=== PATIENT | female | born 1935 | race Caucasian/White ===

== ENCOUNTER → 2019-01-16 | Outpatient (CLI) | payer MEDICARE, BC ==
--- NOTE | 2019-01-17 16:16 | MY ---
[id number] RYAN/RYAN Screening Bilateral PATIENT HISTORY: Menarche at age 11. First Full-Term at age 22. Postmenopausal. REASON FOR EXAM: Screening (asymptomatic). PROCEDURE: Screen Digital Mammogram Bilateral: January 16, 2019 - PRIOR STUDY COMPARISON: 10/14/2015 Bilateral Screening Mammogram, [place]. 11/29/2016 Bilateral Screening Mammogram, [facility]. 12/04/2017 Bilateral Screening Mammogram, [facility]. TISSUE DENSITY: There are scattered areas of fibroglandular density. BI-RADS 1: Negative RECOMMENDATION: Screening Mammogram of both breasts in 1 year. Vladimir Tellez MD 01/17/19 [id number] Thank you for allowing us to participate in the care of your patient.
== END ==
LOC: VM.MAM 15:21
PROVIDERS: ATTEND Physician Assistant
DX: Z12.31 Encounter for screening mammogram for malignant neoplasm of breast (principal)
CPT/HCPCS: 77067